=== PATIENT | male | born 1975 | race Two or more races ===

== ENCOUNTER 2022-07-25 21:06 | Inpatient (IN) | payer OTHER ==
[~2022-07-25] VITALS: Ht 177.8 cm; Wt 105.0 kg
[2022-07-25 21:51] LABS: Basophils # (auto) 0.1 10 ^3/uL (0-0.2); Basophils % (auto) 0.8 % (0.0-2.0); Monocytes # (auto) 0.8 10 ^3/uL (0-1.3); Monocytes % (auto) 5.9 % (0.0-12.0); Nucleated Red Blood Cells % 0.1 %
[2022-07-25 21:53] LABS: Eosinophils # (auto) 0.4 10 ^3/uL (0-0.8); Eosinophils % (auto) 3.4 % (0.0-7.0); Hematocrit 24.1 % (41.0-53.0); Lymphocytes % (auto) 7.4 % (10.0-50.0); Mean Corpuscular Hemoglobin 18.9 pg (28.0-32.0); Mean Corpuscular Hgb Conc. 29.3 g/dL (32.0-36.0); Mean Corpuscular Volume 64.5 fL (80.0-100.0); Neutrophils # (auto) 10.7 10 ^3/uL (1.6-8.6); Neutrophils % (auto) 82.5 % (37.0-80.0); Red Blood Cells 3.73 10^6/uL (4.5-5.90); Red Cell Distribution Width 18.4 % (11.8-14.3)
[2022-07-25 22:11] LABS: Albumin 2.8 g/dL (3.4-5.0); BUN/Creatinine Ratio 15.2 (10.0-20.0); Calcium 7.9 mg/dL (8.5-10.1); Potassium 4.2 mmol/L (3.5-5.1)
[2022-07-25 22:14] LABS: Bilirubin, Total 0.3 mg/dL (0.2-1.0); Total Protein 5.8 g/dL (6.4-8.2)
[2022-07-25] MEDS ORDERED: PANTOPRAZOLE 40mg/50ML NS AE 50 ML IV ONE (22:15)
[2022-07-25] MEDS ORDERED: PANTOPRAZOLE 80 MG in SODIUM CHL 0.9% 100 ML IV ONE (22:15)
[2022-07-25] MEDS ORDERED: OCTREOTIDE ACETATE 100 MCG in SODIUM CHL 0.9% 50 ML IV ONE (22:15)
[2022-07-25] MEDS ORDERED: ONDANSETRON HCL 4 MG/2 ML VIAL ONE (22:24)
[2022-07-25] MEDS ORDERED: ONDANSETRON HCL 4 MG/2 ML VIAL IV ONE (22:30)
[2022-07-25] MEDS ORDERED: PANTOPRAZOLE 40 MG/10 ML VIAL INJ IV ONE (22:44)
[2022-07-25] MEDS ORDERED: OCTREOTIDE ACETATE 100 MCG/ML VL ONE (22:45)
[2022-07-25] MEDS ORDERED: OCTREOTIDE ACETATE 500 MCG/ML VL ONE (22:45)
[2022-07-25] MEDS ORDERED: cefTRIAXone 1GM/50ML D5W 50 ML IV ONE (23:30)
[2022-07-25] MEDS: OCTREOTIDE ACETATE 500 MCG in SODIUM CHL 0.9% 99 ML IV SCH (23:40)
[2022-07-26 00:18] VITALS: BP 114/60
[2022-07-26 00:33] VITALS: BP 105/43
[2022-07-26] MEDS ORDERED: IOHEXOL 350 MG/ML 100ML IJ ONE (00:37)
[2022-07-26] MEDS ORDERED: ONDANSETRON HCL 4 MG/2 ML VIAL IV PRN (00:45)
[2022-07-26] MEDS: PANTOPRAZOLE 40mg/50ML NS AE 50 ML IV SCH ×5 (00:45→19:48)
[2022-07-26] MEDS ORDERED: NITROGLYCERIN 0.4 MG SL TAB SL PRN (00:45)
[2022-07-26] MEDS ORDERED: MORPHINE SULFATE INJ 2 MG/ml SYRG IV PRN (00:45)
[2022-07-26] MEDS: SODIUM CHLORIDE 0.9% 1,000 ML IV SCH ×3 (00:45→21:36)
[2022-07-26 01:13] LABS: INR 1.05 (0.9-1.15); Partial Thromboplastin Time 20.6 sec (24.6-33.4)
[2022-07-26 01:20] VITALS: BP 111/67
[2022-07-26 02:26] VITALS: BP 104/71
[2022-07-26 03:04] LABS: Hemoglobin 7.7 g/dL (13.5-17.5)
[2022-07-26 03:06] LABS: Hematocrit 25.3 % (41.0-53.0)
[2022-07-26] MEDS: OCTREOTIDE ACETATE 500 MCG in SODIUM CHL 0.9% 99 ML IV SCH ×2 (08:05→17:27)
[2022-07-26] MEDS: SUCRALFATE 1 GM/10 ML ORAL SUSP GT SCH ×2 (17:19→21:44)
[2022-07-26] MEDS ORDERED: METO1TAB9 PO (21:17)
[2022-07-26 22:00] VITALS: BP 145/73
[2022-07-27] VITALS (7 sets, daily range): BP systolic 104–146; BP diastolic 64–85
[2022-07-27] MEDS: PANTOPRAZOLE 40mg/50ML NS AE 50 ML IV SCH ×5 (01:35→23:18)
[2022-07-27] MEDS ORDERED: OCTREOTIDE ACETATE 500 MCG/ML VL ONE (04:13)
[2022-07-27] MEDS: OCTREOTIDE ACETATE 500 MCG in SODIUM CHL 0.9% 99 ML IV SCH ×2 (04:45→17:41)
[2022-07-27 06:34] LABS: Basophils # (auto) 0.1 10 ^3/uL (0-0.2); Eosinophils # (auto) 0.4 10 ^3/uL (0-0.8); Monocytes # (auto) 0.4 10 ^3/uL (0-1.3); Neutrophils # (auto) 3.7 10 ^3/uL (1.6-8.6); Nucleated Red Blood Cells % 0.1 %; White Blood Cell 5.5 10^3/uL (4.4-10.8)
[2022-07-27 06:37] LABS: Basophils % (auto) 1.1 % (0.0-2.0); Eosinophils % (auto) 7.6 % (0.0-7.0); Hematocrit 22.3 % (41.0-53.0); Lymphocytes # (auto) 0.8 10 ^3/uL (0.4-5.4); Lymphocytes % (auto) 14.7 % (10.0-50.0); Mean Corpuscular Hemoglobin 20.6 pg (28.0-32.0); Mean Corpuscular Hgb Conc. 30.8 g/dL (32.0-36.0); Mean Corpuscular Volume 66.9 fL (80.0-100.0); Monocytes % (auto) 8.2 % (0.0-12.0); Neutrophils % (auto) 68.4 % (37.0-80.0); Red Blood Cells 3.34 10^6/uL (4.5-5.90)
[2022-07-27] MEDS: SUCRALFATE 1 GM/10 ML ORAL SUSP GT SCH ×2 (06:37→17:42)
[2022-07-27 07:26] LABS: Hemoglobin 6.9 g/dL (13.5-17.5); Red Cell Distribution Width 20.8 % (11.8-14.3)
[2022-07-27 07:44] LABS: Albumin 2.9 g/dL (3.4-5.0); Calcium 8.2 mg/dL (8.5-10.1); Potassium 3.9 mmol/L (3.5-5.1)
[2022-07-27 07:48] LABS: BUN/Creatinine Ratio 13.3 (10.0-20.0); Bilirubin, Total 0.4 mg/dL (0.2-1.0); Total Protein 5.6 g/dL (6.4-8.2)
[2022-07-27] MEDS ORDERED: LIDOCAINE VISCOUS 2% 15ML UD ONE (09:20)
[2022-07-27 09:25] LABS: Urine Bacteria NONE SEEN /hpf (None Seen); Urine Blood Negative /uL (Negative); Urine Mucus FEW (None Seen); Urine Specific Gravity 1.016 (1.001-1.035); Urine WBC 4 /hpf (0 - 3)
[2022-07-27] MEDS: SODIUM CHLORIDE 0.9% 1,000 ML IV SCH ×2 (10:43→22:28)
[2022-07-27] MEDS: fentaNYL CITRATE 100 MCG/2 ML VL ONE ×2 (11:48→11:51)
[2022-07-27] MEDS: MIDAZOLAM HCL 2MG/2ML 2ml VIAL (1mg/ml) ONE ×2 (11:48→11:51)
[2022-07-27] MEDS: diphenhdrAMINE HCL 50 MG/1 ML VL ONE ×2 (11:48→11:49)
[2022-07-27 22:05] LABS: Hematocrit 21.7 % (41.0-53.0)
[2022-07-27 22:13] LABS: Hemoglobin 6.7 g/dL (13.5-17.5)
[2022-07-28] VITALS (28 sets, daily range): BP systolic 91–145; BP diastolic 41–80
[2022-07-28] MEDS: OCTREOTIDE ACETATE 500 MCG in SODIUM CHL 0.9% 99 ML IV SCH ×2 (00:15→11:07)
[2022-07-28 01:13] LABS: INR 1.01 (0.9-1.15); Partial Thromboplastin Time < 20.0 sec (24.6-33.4)
[2022-07-28] MEDS: PANTOPRAZOLE 40mg/50ML NS AE 50 ML IV SCH ×4 (04:02→16:06)
[2022-07-28] MEDS: SUCRALFATE 1 GM/10 ML ORAL SUSP GT SCH ×2 (06:35→17:00)
[2022-07-28 08:30] LABS: Hematocrit 23.6 % (41.0-53.0); Hemoglobin 7.4 g/dL (13.5-17.5)
[2022-07-28] MEDS: SODIUM CHLORIDE 0.9% 1,000 ML IV SCH ×2 (09:47→11:21)
[2022-07-28] MEDS ORDERED: IOHEXOL 350 MG/ML 100ML IJ ONE (10:29)
[2022-07-28 15:03] LABS: Hematocrit 22.3 % (41.0-53.0)
[2022-07-28 16:54] LABS: Hematocrit 18.6 % (41.0-53.0)
[2022-07-28 17:20] LABS: Hemoglobin 5.7 g/dL (13.5-17.5)
[2022-07-28] MEDS ORDERED: fentaNYL CITRATE 100 MCG/2 ML VL ONE (18:56)
[2022-07-28] MEDS ORDERED: MIDAZOLAM HCL 2MG/2ML 2ml VIAL (1mg/ml) ONE (18:57)
[2022-07-28] MEDS ORDERED: LIDOCAINE 2%HCL (LOCAL ANESTH.) INJ 20ML MDV ONE (18:57)
[2022-07-28] MEDS ORDERED: IODIXANOL 320MG/ML 100ML BTL IV ONE ×2 (19:54→19:56)
[2022-07-29] VITALS (81 sets, daily range): BP systolic 108–151; BP diastolic 60–88
[2022-07-29] MEDS: OCTREOTIDE ACETATE 500 MCG in SODIUM CHL 0.9% 99 ML IV SCH ×3 (00:18→18:17)
[2022-07-29 02:21] LABS: Hematocrit 23.5 % (41.0-53.0); Hemoglobin 7.6 g/dL (13.5-17.5)
[2022-07-29 05:23] LABS: Eosinophils # (auto) 0.3 10 ^3/uL (0-0.8); Hematocrit 23.2 % (41.0-53.0); Mean Corpuscular Hemoglobin 24.7 pg (28.0-32.0); Monocytes # (auto) 0.5 10 ^3/uL (0-1.3); Nucleated Red Blood Cells % 0.1 %
[2022-07-29 05:29] LABS: Basophils # (auto) 0.1 10 ^3/uL (0-0.2); Basophils % (auto) 0.7 % (0.0-2.0); Eosinophils % (auto) 4.5 % (0.0-7.0); Hemoglobin 7.7 g/dL (13.5-17.5); Mean Corpuscular Hgb Conc. 33.2 g/dL (32.0-36.0); Mean Corpuscular Volume 74.4 fL (80.0-100.0); Monocytes % (auto) 7.5 % (0.0-12.0); Neutrophils % (auto) 73.3 % (37.0-80.0); Red Blood Cells 3.11 10^6/uL (4.5-5.90); White Blood Cell 6.9 10^3/uL (4.4-10.8)
[2022-07-29] MEDS: SODIUM CHLORIDE 0.9% 1,000 ML IV SCH ×3 (05:29→19:30)
[2022-07-29 05:34] LABS: Red Cell Distribution Width 23.9 % (11.8-14.3)
[2022-07-29] MEDS: SUCRALFATE 1 GM/10 ML ORAL SUSP GT SCH (07:00)
[2022-07-29] MEDS: PANTOPRAZOLE 40mg/50ML NS AE 50 ML IV SCH ×3 (09:08→18:16)
[2022-07-29 22:06] LABS: Hematocrit 22.2 % (41.0-53.0); Hemoglobin 7.2 g/dL (13.5-17.5)
[2022-07-30] VITALS (33 sets, daily range): BP systolic 118–164; BP diastolic 51–96
[2022-07-30] MEDS: OCTREOTIDE ACETATE 500 MCG in SODIUM CHL 0.9% 99 ML IV SCH ×2 (00:05→12:27)
[2022-07-30] MEDS: PANTOPRAZOLE 40mg/50ML NS AE 50 ML IV SCH ×5 (02:12→23:33)
[2022-07-30 05:45] LABS: Basophils # (auto) 0.1 10 ^3/uL (0-0.2); Eosinophils # (auto) 0.4 10 ^3/uL (0-0.8); Eosinophils % (auto) 6.9 % (0.0-7.0); Hemoglobin 7.3 g/dL (13.5-17.5); Lymphocytes # (auto) 0.9 10 ^3/uL (0.4-5.4); Mean Corpuscular Hemoglobin 24.4 pg (28.0-32.0); Nucleated Red Blood Cells % 0.1 %; Red Blood Cells 2.98 10^6/uL (4.5-5.90)
[2022-07-30 05:47] LABS: Hematocrit 22.8 % (41.0-53.0); Lymphocytes % (auto) 16.3 % (10.0-50.0); Mean Corpuscular Hgb Conc. 31.9 g/dL (32.0-36.0); Mean Corpuscular Volume 76.4 fL (80.0-100.0); Monocytes # (auto) 0.5 10 ^3/uL (0-1.3); Monocytes % (auto) 8.1 % (0.0-12.0); Neutrophils # (auto) 3.9 10 ^3/uL (1.6-8.6); Neutrophils % (auto) 67.7 % (37.0-80.0); White Blood Cell 5.7 10^3/uL (4.4-10.8)
[2022-07-30 06:26] LABS: Red Cell Distribution Width 23.2 % (11.8-14.3)
[2022-07-30] MEDS: SODIUM CHLORIDE 0.9% 1,000 ML IV SCH ×2 (06:50→17:17)
[2022-07-30] MEDS: SUCRALFATE 1 GM/10 ML ORAL SUSP GT SCH ×2 (07:00→17:00)
[2022-07-30] MEDS: IRON SUCROSE COMPLEX 200 MG in SODIUM CHL 0.9% 100 ML IV SCH (17:48)
[2022-07-31] VITALS (12 sets, daily range): BP systolic 117–157; BP diastolic 51–87
[2022-07-31] MEDS: PANTOPRAZOLE 40mg/50ML NS AE 50 ML IV SCH ×4 (03:53→19:34)
[2022-07-31 04:49] LABS: Potassium 3.6 mmol/L (3.5-5.1)
[2022-07-31 04:50] LABS: Basophils # (auto) 0.1 10 ^3/uL (0-0.2); Eosinophils # (auto) 0.4 10 ^3/uL (0-0.8); Hemoglobin 7.5 g/dL (13.5-17.5); Monocytes # (auto) 0.4 10 ^3/uL (0-1.3); Neutrophils # (auto) 3.5 10 ^3/uL (1.6-8.6)
[2022-07-31 04:52] LABS: BUN/Creatinine Ratio 9.6 (10.0-20.0); Basophils % (auto) 1.3 % (0.0-2.0); Bilirubin, Total 0.6 mg/dL (0.2-1.0); Hematocrit 23.3 % (41.0-53.0); Lymphocytes # (auto) 0.7 10 ^3/uL (0.4-5.4); Lymphocytes % (auto) 13.1 % (10.0-50.0); Mean Corpuscular Hemoglobin 23.9 pg (28.0-32.0); Mean Corpuscular Hgb Conc. 32.1 g/dL (32.0-36.0); Mean Corpuscular Volume 74.6 fL (80.0-100.0); Monocytes % (auto) 8.3 % (0.0-12.0); Neutrophils % (auto) 69.3 % (37.0-80.0); Nucleated Red Blood Cells % 0.3 %; Red Blood Cells 3.13 10^6/uL (4.5-5.90); Total Protein 5.1 g/dL (6.4-8.2)
[2022-07-31 05:03] LABS: Red Cell Distribution Width 23.9 % (11.8-14.3)
[2022-07-31] MEDS: SUCRALFATE 1 GM/10 ML ORAL SUSP GT SCH (06:54)
[2022-07-31] MEDS: SODIUM CHLORIDE 0.9% 1,000 ML IV SCH (06:54)
[2022-07-31] MEDS ORDERED: SODIUM FERR GLUC 62.5MG/5ML 125 MG in SODIUM CHL 0.9% 100 ML IV SCH (12:00)
[2022-07-31] MEDS: IRON SUCROSE COMPLEX 200 MG in SODIUM CHL 0.9% 100 ML IV SCH (13:02)
[2022-08-01] VITALS (11 sets, daily range): BP systolic 114–149; BP diastolic 51–82
[2022-08-01] MEDS: PANTOPRAZOLE 40mg/50ML NS AE 50 ML IV SCH ×5 (00:36→18:10)
[2022-08-01 05:52] LABS: Basophils # (auto) 0.1 10 ^3/uL (0-0.2); Eosinophils # (auto) 0.3 10 ^3/uL (0-0.8); Eosinophils % (auto) 7.1 % (0.0-7.0); Lymphocytes # (auto) 0.7 10 ^3/uL (0.4-5.4); Monocytes # (auto) 0.5 10 ^3/uL (0-1.3); White Blood Cell 4.9 10^3/uL (4.4-10.8)
[2022-08-01 05:55] LABS: Basophils % (auto) 1.2 % (0.0-2.0); Hematocrit 23.8 % (41.0-53.0); Hemoglobin 7.8 g/dL (13.5-17.5); Lymphocytes % (auto) 13.5 % (10.0-50.0); Mean Corpuscular Hemoglobin 24.5 pg (28.0-32.0); Mean Corpuscular Hgb Conc. 32.5 g/dL (32.0-36.0); Mean Corpuscular Volume 75.4 fL (80.0-100.0); Neutrophils # (auto) 3.4 10 ^3/uL (1.6-8.6); Neutrophils % (auto) 68.2 % (37.0-80.0); Nucleated Red Blood Cells % 0.2 %; Red Blood Cells 3.16 10^6/uL (4.5-5.90)
[2022-08-01 06:02] LABS: Red Cell Distribution Width 24.2 % (11.8-14.3)
[2022-08-01 06:05] LABS: Potassium 3.6 mmol/L (3.5-5.1)
[2022-08-01 06:16] LABS: Bilirubin, Total 0.4 mg/dL (0.2-1.0); Calcium 8.1 mg/dL (8.5-10.1); Total Protein 5.6 g/dL (6.4-8.2)
[2022-08-01] MEDS: SUCRALFATE 1 GM/10 ML ORAL SUSP GT SCH ×3 (06:18→18:13)
[2022-08-01] MEDS: IRON SUCROSE COMPLEX 200 MG in SODIUM CHL 0.9% 100 ML IV SCH (12:42)
[2022-08-02] MEDS: PANTOPRAZOLE 40mg/50ML NS AE 50 ML IV SCH ×5 (00:15→21:46)
[2022-08-02 05:00] VITALS: BP 119/78
[2022-08-02] MEDS: IRON SUCROSE COMPLEX 200 MG in SODIUM CHL 0.9% 100 ML IV SCH ×2 (06:06→13:40)
[2022-08-02 06:11] LABS: Basophils # (auto) 0.1 10 ^3/uL (0-0.2); Hemoglobin 8.3 g/dL (13.5-17.5); Neutrophils # (auto) 3.6 10 ^3/uL (1.6-8.6)
[2022-08-02] MEDS: SUCRALFATE 1 GM/10 ML ORAL SUSP GT SCH ×2 (06:13→17:27)
[2022-08-02 06:16] LABS: Basophils % (auto) 1.4 % (0.0-2.0); Eosinophils # (auto) 0.3 10 ^3/uL (0-0.8); Eosinophils % (auto) 6.6 % (0.0-7.0); Hematocrit 26.4 % (41.0-53.0); Lymphocytes # (auto) 0.7 10 ^3/uL (0.4-5.4); Lymphocytes % (auto) 13.1 % (10.0-50.0); Mean Corpuscular Hgb Conc. 31.6 g/dL (32.0-36.0); Mean Corpuscular Volume 75.8 fL (80.0-100.0); Monocytes # (auto) 0.4 10 ^3/uL (0-1.3); Monocytes % (auto) 8.6 % (0.0-12.0); Neutrophils % (auto) 70.3 % (37.0-80.0); Nucleated Red Blood Cells % 0.3 %; Red Blood Cells 3.48 10^6/uL (4.5-5.90); White Blood Cell 5.1 10^3/uL (4.4-10.8)
[2022-08-02 06:25] LABS: Red Cell Distribution Width 24.5 % (11.8-14.3)
[2022-08-02 06:35] LABS: Albumin 3.2 g/dL (3.4-5.0); Calcium 8.4 mg/dL (8.5-10.1); Potassium 3.5 mmol/L (3.5-5.1)
[2022-08-02 06:38] LABS: BUN/Creatinine Ratio 7.6 (10.0-20.0); Bilirubin, Total 0.6 mg/dL (0.2-1.0); Total Protein 6.1 g/dL (6.4-8.2)
[2022-08-02 09:00] VITALS: BP 142/76
[2022-08-02 13:00] VITALS: BP 110/70
[2022-08-02 16:37] VITALS: BP 112/70
[2022-08-02 22:00] VITALS: BP 113/66
[2022-08-03] MEDS: PANTOPRAZOLE 40mg/50ML NS AE 50 ML IV SCH ×2 (03:23→06:11)
[2022-08-03 06:05] LABS: Basophils # (auto) 0.1 10 ^3/uL (0-0.2); Eosinophils # (auto) 0.3 10 ^3/uL (0-0.8); Mean Corpuscular Hemoglobin 25.3 pg (28.0-32.0); Monocytes # (auto) 0.6 10 ^3/uL (0-1.3)
[2022-08-03 06:08] LABS: Basophils % (auto) 1.6 % (0.0-2.0); Eosinophils % (auto) 6.6 % (0.0-7.0); Hematocrit 24.9 % (41.0-53.0); Hemoglobin 8.3 g/dL (13.5-17.5); Lymphocytes # (auto) 0.8 10 ^3/uL (0.4-5.4); Lymphocytes % (auto) 16.3 % (10.0-50.0); Mean Corpuscular Hgb Conc. 33.1 g/dL (32.0-36.0); Mean Corpuscular Volume 76.4 fL (80.0-100.0); Monocytes % (auto) 12.8 % (0.0-12.0); Neutrophils # (auto) 3.1 10 ^3/uL (1.6-8.6); Neutrophils % (auto) 62.7 % (37.0-80.0); Nucleated Red Blood Cells % 0.1 %; Red Blood Cells 3.27 10^6/uL (4.5-5.90); White Blood Cell 4.9 10^3/uL (4.4-10.8)
[2022-08-03 06:18] LABS: Red Cell Distribution Width 26.2 % (11.8-14.3)
[2022-08-03] MEDS: SUCRALFATE 1 GM/10 ML ORAL SUSP GT SCH (06:18)
[2022-08-03 06:26] LABS: Albumin 3.1 g/dL (3.4-5.0); Calcium 8.4 mg/dL (8.5-10.1); Potassium 3.8 mmol/L (3.5-5.1)
[2022-08-03 06:31] LABS: BUN/Creatinine Ratio 8.2 (10.0-20.0); Bilirubin, Total 0.5 mg/dL (0.2-1.0); Total Protein 5.9 g/dL (6.4-8.2)
[2022-08-03 09:00] VITALS: BP 130/70
[2022-08-03 13:00] VITALS: BP 137/76
[2022-08-03] MEDS ORDERED: SUCR1SUS10 GT (13:46)
[2022-08-03] MEDS ORDERED: PANT40TA2 PO (13:46)
== END 2022-08-03 16:17 | disposition home or self-care (01) | DRG 357 ==
LOC: ER 21:06 → EDBD 21:06 → TELE 07-26 00:48 → TELE-WESTW 07-26 20:45 → DOU IN ICU 07-28 17:05 → ICU CENTRL 07-28 18:36 → DOU IN ICU 07-30 17:17 → TELE-WESTW 08-01 17:38
PROVIDERS: ADMIT Nurse Practitioner; ATTEND Internal Medicine
PROC: 30233N1 Transfusion of Nonautologous Red Blood Cells into Peripheral Vein, Percutaneous Approach (ICD-10-PCS; principal; 2022-07-26)
PROC: 0DB48ZX Excision of Esophagogastric Junction, Via Natural or Artificial Opening Endoscopic, Diagnostic (ICD-10-PCS; 2022-07-27)
PROC: 0DB68ZX Excision of Stomach, Via Natural or Artificial Opening Endoscopic, Diagnostic (ICD-10-PCS; 2022-07-27)
PROC: 0DB98ZX Excision of Duodenum, Via Natural or Artificial Opening Endoscopic, Diagnostic (ICD-10-PCS; 2022-07-27)
PROC: 04L33DZ Occlusion of Hepatic Artery with Intraluminal Device, Percutaneous Approach (ICD-10-PCS; 2022-07-28)
PROC: B4141ZZ Fluoroscopy of Superior Mesenteric Artery using Low Osmolar Contrast (ICD-10-PCS; 2022-07-28)
DX: K25.0 Acute gastric ulcer with hemorrhage (principal); D62 Acute posthemorrhagic anemia; E87.29 Other acidosis; K25.4 Chronic or unspecified gastric ulcer with hemorrhage; I10 Essential (primary) hypertension; E66.9 Obesity, unspecified; E87.6 Hypokalemia; E11.65 Type 2 diabetes mellitus with hyperglycemia; E87.8 Other disorders of electrolyte and fluid balance, not elsewhere classified; E88.09 Other disorders of plasma-protein metabolism, not elsewhere classified; K44.9 Diaphragmatic hernia without obstruction or gangrene; Z98.84 Bariatric surgery status; Z86.718 Personal history of other venous thrombosis and embolism; Z68.36 Body mass index [BMI] 36.0-36.9, adult
CPT/HCPCS: 36415; 43239; 70450; 71045; 71260; 72125; 74175; 74177; 76000; 76937; 80053; 81001; 83036; 85014; 85018; 85025; 85610; 85730; 86850; 86900; 86901; 86920; 87081; 93005; 96365; 96366; 96375; 99152; 99153; 99291; C1889; C9113; G0378; J0696; J1756; J2250; J2405; Q9967

== ENCOUNTER 2022-11-26 12:08 | Day surgery (SDC) | payer OTHER ==
[2022-11-24 11:26] LABS: Basophils # (auto) 0.1 10 ^3/uL (0-0.2); Eosinophils # (auto) 0.1 10 ^3/uL (0-0.8); Hemoglobin 11.4 g/dL (13.5-17.5); Lymphocytes # (auto) 0.7 10 ^3/uL (0.4-5.4); Mean Corpuscular Hemoglobin 20.7 pg (28.0-32.0); Mean Corpuscular Hgb Conc. 30.3 g/dL (32.0-36.0); Mean Corpuscular Volume 68.3 fL (80.0-100.0); Monocytes # (auto) 0.6 10 ^3/uL (0-1.3); Monocytes % (auto) 11.2 % (0.0-12.0); Neutrophils # (auto) 3.8 10 ^3/uL (1.6-8.6)
[2022-11-24 11:28] LABS: Basophils % (auto) 1.5 % (0.0-2.0); Hematocrit 37.7 % (41.0-53.0); Lymphocytes % (auto) 13.6 % (10.0-50.0); Neutrophils % (auto) 71.7 % (37.0-80.0); Red Blood Cells 5.51 10^6/uL (4.5-5.90); White Blood Cell 5.2 10^3/uL (4.4-10.8)
[2022-11-24 11:29] LABS: Red Cell Distribution Width 22.4 % (11.8-14.3)
[2022-11-24 11:40] LABS: INR 1.04 (0.9-1.15); Partial Thromboplastin Time 24.6 SEC (24.5-34.5); Prothrombin Time 10.9 sec (9.3-11.8)
[2022-11-24 11:59] LABS: Hypochromia Moderate; Platelet Estimate Adequate
[2022-11-24 12:00] LABS: Anisocytosis Slight
[2022-11-24 12:10] LABS: Alanine Aminotransferase 44 U/L (7-40); Albumin 4.7 g/dL (3.2-4.8); Alkaline Phosphatase 58 U/L (46-116); Anion Gap 8.2 (5-15); Aspartate Aminotransferase 40 U/L (13-40); BUN/Creatinine Ratio 7.8 (10.0-20.0); Blood Urea Nitrogen 6 mg/dL (9-23); Calcium 9.3 mg/dL (8.5-10.1); Carbon Dioxide 24.8 mmol/L (20-30); Chloride 105 mmol/L (98-107); Glucose 103 mg/dL (74-106); Potassium 4.9 mmol/L (3.5-5.1); Sodium 138 mmol/L (136-145)
[2022-11-24 12:11] LABS: Bilirubin, Total 0.9 mg/dL (0.2-1.0); Total Protein 7.1 g/dL (5.7-8.2)
[~2022-11-26] VITALS: Ht 177.8 cm; Wt 104.3 kg
[~2022-11-26 12:08] MED LIST: FERR15DR18 PO
[2022-11-26] MEDS ORDERED: NALOXONE HCL 0.4 MG/ML VIAL ONE (12:15)
[2022-11-26] MEDS ORDERED: FLUMAZENIL 0.1 MG/ML INJ 10ML MDV IV ONE (12:15)
[2022-11-26] MEDS ORDERED: SODIUM CHLORIDE LOCK 10 ML ONE (12:15)
[2022-11-26] MEDS: diphenhdrAMINE HCL 50 MG/1 ML VL ONE ×2 (13:15→13:17)
[2022-11-26] MEDS: fentaNYL CITRATE 100 MCG/2 ML VL ONE ×2 (13:15→13:18)
[2022-11-26] MEDS: MIDAZOLAM HCL 5 MG/ML-1ML VIAL ONE ×4 (13:15→13:24)
[2022-11-26 13:34] VITALS: TEMP 97.7
[2022-11-26 14:00] VITALS: BP 147/104; PULSE 79; RESP 15; O2SAT 100
== END 2022-11-26 14:10 | disposition home or self-care (01) ==
LOC: GI 12:08
PROVIDERS: ATTEND Internal Medicine Gastroenterology
DX: D64.9 Anemia, unspecified (principal); K64.0 First degree hemorrhoids
CPT/HCPCS: 36415; 45378; 80053; 85025; 85610; 85730; J1200; J2250; J3010